=== PATIENT | female | born 1990 | race Caucasian/White ===

== ENCOUNTER 2016-11-10 06:06 | Inpatient (IN) | payer OTHER ==
[2016-11-10] VITALS (8 sets, daily range): BP systolic 100–130; BP diastolic 57–73
[2016-11-10] MEDS ORDERED: PRENATAL VITAMINS PO (07:04)
[2016-11-10] MEDS ORDERED: ZOLOFT50 MG PO (07:05)
[2016-11-10] MEDS ORDERED: TUMS500 MG PO (07:06)
--- NOTE | 2016-11-10 16:30 | NUR ---
AFTER RECEIVING REPORT FROM DERECK RN I ASSESSED THE PT AND SHE HAD A FIRM FUNDUS AT THE [facility] WITH MODERATE BLEEDING. PATIENT GIVEN HER LISSETH PACK AND EXPLAINED ITS USE, SHE VERBALIZES UNDERSTANDING AND TOOK IBUPROFEN FOR MILD DISCOMFORT OF "BOTTOM PAIN" OF 3/10. PT UP TO THE BATHROOM AND VOIDED 150 ML,PATIENT SHOWERED, TOLERATED WELL THEN AMBULATED TO ROOM 319 AND IS NOW . EPIDURAL CATHETER REMOVED, TIP INTACT PRIOR TO PATIENT GETTING OUT OF BED.
--- NOTE | 2016-11-10 17:25 | NUR ---
PATIENT HAD 3/4 PAD SATURATED, PAD CHANGED. IV PITOCIN INFUSING PER ORDERS AT 75ML/HR. C/O PAIN 7/10, INCREASED WITH FUNDAL MASSAGE. FUNDUS IS FIRM AT THE [facility]. WILL CONTINUE TO MONITOR.
--- NOTE | 2016-11-10 18:48 | NUR ---
FUNDUS FIRM AT THE [facility], PAD 1/2 SATURATED IN 1 HOUR. PATIENT C/O SEVERE PAIN WTIH FUNDAL MASSAGE AND IN HER PERINEUM. MEDICATED WITH FENTANYL PER 1 TIME DOSE FROM TONI. TONI NOTIFIED OF MODERATE TO HEAVY BLEEDING AFTER BEING MEDICATED WITH MISOPROSTOL AND METHERGINE PER DAY SHIFT. ORDERS RECEIVED FOR PAIN MEDICATION AND TO CONTINUE PITOCIN PER ORDERS DURING THE NIGHT. WILL CONTINUE TO MONITOR.
--- NOTE | 2016-11-10 22:21 | NUR ---
PATIENT GOING TO SLEEP. SHE HAD BEEN SLEEPING WITH NB ON HER CHEST, ADVISED HER TO PLACE NB IN CRIB WHILE SHE SLEEPS AND EDUCATED PATIENT ON NB SAFETY AND BACK TO SLEEP, SHE VERBALIZES UNDERSTANDING AND NB IS PLACED IN THE CRIB TO SLEEP. CALL LIGHT WITHIN REACH AND PATIENT WILL CALL FOR HELP IF NEEDED.
[2016-11-11 01:30] VITALS: BP 116/74
[2016-11-11 08:00] VITALS: BP 116/91
--- NOTE | 2016-11-11 12:45 | Provider's Discharge Care Plan ---
Problem, Goal, Plan Problem List 1. normal course Goals: Improve function Instructions: Follow up as directed
--- NOTE | 2016-11-11 12:45 | Provider's Discharge Care Plan ---
Problem, Goal, Plan Problem List 1. normal course Goals: Improve function Instructions: Follow up as directed
== END 2016-11-11 14:14 | disposition home or self-care (01) | DRG 560 ==
LOC: OBC SRH 06:06 → OB SRH 06:13 → OBC SRH 09:08 → OB SRH 09:09
PROVIDERS: ADMIT Obstetrics & Gynecology
PROC: 10E0XZZ Delivery of Products of Conception, External Approach (ICD-10-PCS; principal; 2016-11-10)
PROC: 3E033VJ Introduction of Other Hormone into Peripheral Vein, Percutaneous Approach (ICD-10-PCS; 2016-11-10)
PROC: 3E0234Z Introduction of Serum, Toxoid and Vaccine into Muscle, Percutaneous Approach (ICD-10-PCS; 2016-11-11)
DX: O80 Encounter for full-term uncomplicated delivery (principal); Z37.0 Single live birth; Z3A.39 39 weeks gestation of pregnancy; Z23 Encounter for immunization
CPT/HCPCS: 29255; 29257; 40010; 82221; 83411; 90004; 90074; 95059

== ENCOUNTER 2016-12-22 23:19 | Emergency (ER) | payer OTHER ==
[~2016-12-22 23:19] MED LIST: PRENATAL VITAMINS PO; TUMS500 MG PO; ZOLOFT50 MG PO
--- NOTE | 2016-12-23 03:31 | ED ORDER SUMMARY ---
..... Patient: JOSEPH CROOK OrderSheet [facility] VisitID: [id number] [address] [place] [address] 26y, F Registration Date/Time: 12/22/2016 ORDER SHEET Weight: 97.5 kg (stated) Allergies: No Known Drug Allergy GENERAL ORDERS: UA-Culture if indicated Urgent (01:00 12/23/2016 Amanda Fields) (Ack 1:16 Katia ER Micromatic Hone Operator) (1:54 CFalkner R.N.) Urine Urgent (01:00 12/23/2016 Amanda Fields) (Ack 1:16 Katia ER Micromatic Hone Operator) (1:54 CFalkner R.N.) CMP Urgent (02:12/23/2016 Amanda Fields) (Ack 2:32 Katia ER Micromatic Hone Operator) (2:38 JBullard R.N.) CBC w Diff Urgent (02:12/23/2016 Amanda Fields) (Ack 2:32 Katia ER Micromatic Hone Operator) (2:38 JBullard R.N.) Lipase Urgent (02:12/23/2016 Amanda Fields) (Ack 2:32 Katia ER Micromatic Hone Operator) (2:38 JBullard R.N.) Pulse oximeter (02:26 12/23/2016 Amanda Fields) (2:38 JBullard R.N.) CT Abd/Pel wo Cont Urgent (02:37 12/23/2016 Amanda Fields) (Ack 2:38 Katia ER Micromatic Hone Operator) (2:59 GUnger) MEDICATION ORDERS: IV FLUIDS: IV NS : initial bolus 1000 mL (1000 mL/hr), then none - for X1 (NOW) (02:25 12/23/2016 Amanda Fields) (Ack 2:34 JQuivey R.N.) (2:44 CFalkner R.N.) Ceftriaxone IV 1 gm/50mL (NOW) (02:25 12/23/2016 Amanda Fields) (Ack 2:35 JQuivey R.N.) (2:45 CFalkner R.N.) Toradol IV 30 mg (NOW) (02:35 12/23/2016 Amanda Fields) (2:46 Jaron R.N.) Zofran IV 4 mg (NOW) (02:35 12/23/2016 Amanda Fields) (2:45 CFaldelta R.N.) Morphine IV 4 mg (HIGH ALERT MEDICATION, NOW) (03:27 12/23/2016 Amanda Fields) (3:51 Huang Jeronimo.Aidan) ORDER SHEET NOTES: [Electronically signed by Rell Panchal R.N. (03:54 12/23/2016)] [Electronically signed by Hayder Ziegler Dr. (12:40 12/26/2016)] [Electronically locked/signed by Rell Panchal R.N. (03:54 12/23/2016)]
--- NOTE | 2016-12-23 03:31 | ED CLINICAL REPORT ---
Clinical Report - Physicians/Mid Levels [facility] [address] [place] [address] 12/22/2016 23:19 Patient: JOSEPH CROOK Arrived- By private vehicle. Historian- patient. HISTORY OF PRESENT ILLNESS Chief Complaint: FLANK PAIN and RIGHT. At its maximum, severity described as moderate. When seen in the E.D., severity described as moderate. Modifying factors- worsened by movement. Relieved by rest. This started last night and is still present and worsening. It was abrupt in onset and has been constant but is not gone now. It is described as sharp. No radiation. It is described as located in the right flank and in the suprapubic area. The patient has had nausea. She has had moderate vomiting. No bilious emesis, feculent emesis, blood-tinged emesis, coffee-grounds emesis or frankly bloody emesis. No unusually dark emesis. No additional abdominal pain. Similar symptoms previously: None. Recent medical care: Not recently seen/assessed. REVIEW OF SYSTEMS No constipation, black stools, hematemesis, bloody stools or fever. No skin rash. All systems otherwise negative, except as recorded above. PAST HISTORY See nurses notes. Medications: Vitamins Oral. Sertraline HCl Oral. Allergies: No Known Drug Allergy. SOCIAL HISTORY Never smoker. No alcohol use or drug use. No recent travel. Is a local resident. ADDITIONAL NOTES The nursing notes have been reviewed. PHYSICAL EXAM Vital Signs: 12/23/2016 00:03 BP: 140/86. HR: 66. RR: 16. O2 saturation: 95%. Temp: 97.9 F. Pain level now: 10/10. Blood pressure normal. Oxygen saturation normal. Appearance: Alert. Oriented X3. No acute distress. Eyes: Pupils equal, round and reactive to light. Eyes normal inspection. ENT: Ears normal. Nose normal. Pharynx normal. Neck: Normal inspection. Neck supple. CVS: Normal heart rate and rhythm. Heart sounds normal. Pulses normal. Respiratory: No respiratory distress. Breath sounds normal. Chest nontender. Abdomen: Soft and nontender. Bowel sounds normal. (negative Marx's. No tenderness at McBurney's. No rebound or guarding.). Skin: Skin warm and dry. Normal skin color. No rash. Normal skin turgor. Extremities: Extremities exhibit normal ROM. No lower extremity edema. LABS, X-RAYS, AND EKG Abdominal CT: PROCEDURE: CT ABDOMEN/PELVIS W/O CONTRAST INDICATION: Right flank pain TECHNIQUE: Noncontrast axial images were obtained of the entire abdomen and pelvis with sagittal and coronal reformations. COMPARISON: None. FINDINGS: ABDOMEN: There are two adjacent right UVJ calculi (two and 3 mm) with severe right hydroureteronephrosis. Normal left kidney and ureter. Lung base are clear. Heart size is normal. Liver, gallbladder, pancreas, spleen and adrenal glands are normal. Nonspecific bowel gas pattern. PELVIS: Normal appendix normal uterus, adnexa and bladder. Bones are unremarkable. IMPRESSION: 1. Two adjacent right UVJ calculi with severe right hydroureteronephrosis. Study type: abdomen and pelvis. Abdominal CT performed without contrast. The study was independently viewed by me and interpreted by the radiologist. The study was discussed with the radiologist (via fax). Laboratory Tests: UA-Culture if indicated: (ANGEL: 12/23/2016 01:50) ( MsgRcvd 12/23/2016 02:10) Final results Test Result Flag Units (Reference) URINE COLOR YELLOW URINE APPEARANCE CLEAR URINE GLUCOSE NEGATIVE (NEGATIVE) URINE BILIRUBIN NEGATIVE (NEGATIVE) URINE KETONE TRACE (NEGATIVE) URINE SPECIFIC GRAVITY >= 1.030 (1.010-1.030) URINE PH 6.0 (5.0-8.0) URINE PROTEIN TRACE (NEGATIVE) URINE UROBILINOGEN 0.2 EU/dL (0.2-1.0) URINE NITRITE NEGATIVE (NEGATIVE) URINE BLOOD 3+ (NEGATIVE) URINE LEUK ESTERASE POSITIVE (NEGATIVE) URINE RBC 50-75 rbc/hpf (0-1) URINE WBC 5-10 wbc/hpf (0-1) URINE EPITHELIAL CELLS 0-1 EPI/hpf (0-5) URINE BACTERIA MODERATE (2+ TO 3+) (NONE SEEN) URINE COMMENT CULTURE INDICATED URINE CULTURES ARE SET-UP BASED ON THE FOLLOWING CRITERIA:POSITIVE NITRITEPOSITIVE LEUKOCYTE ESTERASEGREATER THAN 10 WHITE BLOOD CELLSMODERATE (2+) OR GREATER BACTERIA Urine: (ANGEL: 12/23/2016 01:50) ( MsgRcvd 12/23/2016 02:02) Final results Test Result Flag Units (Reference) URINE NEGATIVE . PROGRESS AND PROCEDURES Course of Care: The patient is a pleasant 26-year-old female no current past medical history presenting for a dilation of flank pain. At this time differential diagnosis includes urinary tract infection, pyelonephritis, or urolithiasis. Patient be evaluated with CT scan of the abdomen and pelvis without contrast in addition to laboratory studies including urinalysis and S/complete blood count cell count. Patient agreeable to the treatment plan. Patient is nontoxic on examination. Vital signs are also noted to be unremarkable. Workup shows patient to havestones noted in the UVJ. The size of the stones are 3 mm and had a high likelihood of passing based on the size. Patient also reported improved pain symptoms with medications provided here in the emergency department. Do not feel patient is being admitted to the hospital require further emergency department workup/evaluation. Patient will be treated conservatively with nonsteroidal anti-inflammatory medications, other pain medication, and urology follow-up. Discussed with patient workup, diagnosis, home care, follow-up, and return precautions. All questions answered. The patient expressed understanding of these instructions and was agreeable aaliyahednot the patient hasacute appendicitis or atypical presentation. The patient has a more sinister etiology for her pain today. Symptoms are consistent with findings on CT scan today. Disposition: Discharged. Condition: good. CLINICAL IMPRESSION Abdominal pain. (acute right flank and lower abdomen). 12/23/2016 00:03 BP: 140/86. HR: 66. RR: 16. O2 saturation: 95%. Temp: 97.9 F. Pain level now: 10/10. Hypertensive. Oxygen saturation normal. Right renal colic (acute). Ureterolithiasis (multiple stones) in the right ureter (acute). Acute urinary tract infection with hematuria. Essential hypertension. INSTRUCTIONS Warnings: GENERAL WARNINGS: Return or contact your physician immediately if your condition worsens or changes unexpectedly, if not improving as expected, or if other problems arise. SPECIFICALLY, return if you develop pain, fever, vomiting, the inability to keep fluids down, blood in vomitus, blood in diarrhea, fainting or lightheadedness. Your Current Medications: CONTINUE TAKING THE FOLLOWING MEDICATIONS: Vitamins Oral. Sertraline HCl Oral. Prescription Medications: Motrin 600 mg tablets: take 1 tablet orally every 6 hours as needed for pain, stiffness or swelling. Dispense thirty (30). No refill. Substitution is permissible. Zofran ODT 4 mg: take 1 orally every 8 hours as needed for nausea and vomiting. Dispense ten (10). No refill. Substitution is permissible. Percocet 5 mg/325 mg: take 1 tablet orally every 6 hours as needed for pain. Dispense twenty (20). No refill. Substitution is permissible. Follow-up: Return to the emergency department as needed. Follow up with your doctor in three days. Reason for referral: recheck today's concerns. Summary of care provided to patient via paper. Screening today revealed the patient's blood pressure to be in the normal range. The patient should follow up with a primary care provider for blood pressure management. Understanding of the discharge instructions verbalized by patient. Follow-up with: Fran Diaz MD, Urology, , [address] [facility] [place], [id number] Follow up in one week. Reason for referral: recheck today's concerns. Summary of care provided to patient via paper. (Electronically signed by Hayder Ziegler Dr. 12/26/2016 12:40)
--- NOTE | 2016-12-23 03:31 | ED NURSING NOTES ---
Clinical Report - Nurses [facility] [place] [address] 12/22/2016 23:19 Patient: TERELL CROOK TRIAGE Acuity: LEVEL 3. Chief Complaint: ABDOMINAL PAIN and NAUSEA. 00:12. --00:12 Clarisse Mcguire R.N. 00:03 12/23/16. BP: 140/86 taken on the left arm, via an automated monitor, while sitting. HR: 66 (regular, normal rate and strong). RR: 16 (regular, unlabored and normal). O2 saturation: 95% on room air. Temp: 97.9 F (oral). Pain level now: 08/14. --00:12 Clarisse Mcguire R.N. Weight: 97.5 kg stated. Height/Length: 67 inches Per Patient. BMI: 33.7. --00:11 Clarisse Mcguire R.N. Medications Vitamins Oral. Sertraline HCl Oral. --00:05 Clarisse Mcguire R.N. Allergies No Known Drug Allergy. --00:05 Clarisse Mcgurie R.N. History Arrived by private vehicle. Historian: patient. Accompanied by grandmother (not seen). Onset. (3 hours ago). She has had nausea. Last oral intake by patient was (2 minutes ago). PAST MEDICAL HX: Immunizations: up-to-date. ( post 6 weeks). SOCIAL HX: Smoker- current status unknown. No alcohol use or drug use. FALL RISK ASSESSMENT: Fall risk assessment completed. No fall risk identified. NUTRITIONAL RISK ASSESSMENT: The nutritional risk assessment revealed no deficiencies. FUNCTIONAL ASSESSMENT: Functional assessment: no impairments noted. LEARNING NEEDS ASSESSMENT: The learning needs assessment revealed no barriers. SKIN INTEGRITY ASSESSMENT: Skin integrity risk assessment completed. No skin integrity risk identified. --00:12 Clarisse Mcguire R.N. NURSING PROGRESS NOTES ( ICE BAGS GIVEN). --01:49 Orlando Stock ER Veneer Marker 01:55. Patient ID band checked for patient name and birthdate. Clean catch urine collected with return of terell-colored urine; sample sent to lab for urinalysis and HCG. Specimen labeled in the presence of the patient. --01:55 Clarisse Mcguire R.N. 02:34 12/23/2016 Started bag #1 1000 mL IV Fluids IV NS (Saline); at 1000 mL/hr over 1 hour(s) via site #1 --02:44 Clarisse Mcguire R.N. 02:35 12/23/2016 Zofran (Ondansetron HCl) IVP 4 mg given over 2 minute(s) via site #1. Allergies verified and confirmed 5 rights. IV patency established. IV site checked: no pain, redness, or swelling. IV flushed thoroughly pre- and post-medication administration. --02:45 Clarisse Mcguire R.N. 02:41 12/23/2016 Toradol IVP 30 mg given over 2 minute(s) via site #1. Allergies verified and confirmed 5 rights. IV patency established. IV site checked: no pain, redness, or swelling. IV flushed thoroughly pre- and post-medication administration. --02:46 Clarisse Mcguire R.N. 02:43 12/23/2016 Site #1 started via IV in the right forearm with an 20g angiocath, with aseptic technique and good blood return; one attempt. Blood drawn: rainbow set. Labeled in the presence of the patient and sent to the lab. Saline lock flushed with 10 mL saline. --02:43 Clarisse Mcguire R.N. 02:45 12/23/2016 Started 1 gm of Ceftriaxone IVPB in bag #1 50 mL; at 100 mL/hr over 30 minute(s) via site #1 --02:45 Clarisse Mcguire R.N. 02:50. Patient transported to [place] by stretcher with tech. --02:52 Uziel Barber R.N. 03:51 12/23/2016 Morphine IVP 4 mg given over 2 minute(s) via site #1. Allergies verified, confirmed 5 rights and sedative warning given to the patient. IV patency established. IV site checked: no pain, redness, or swelling. IV flushed thoroughly pre- and post-medication administration. --03:51 Rell Panchal R.N. 03:52 12/23/2016 Site #1 removed upon discharge. Bandage applied. --03:52 Rell Panchal R.N. 03:53 12/23/2016 IV Fluids IV NS Discontinued: infused upon discharge. Total amount infused: 1000 mL. IV patency established. IV site checked: no pain, redness, or swelling. IV flushed thoroughly. --03:53 Rell Panchal R.N. 03:53 12/23/2016 Ceftriaxone IVPB Discontinued: bag #1 infused upon discharge. Total amount infused: 50 mL. IV patency established. IV site checked: no pain, redness, or swelling. IV flushed thoroughly. --03:53 Rell Panchal R.N. DISPOSITION / DISCHARGE Departure time: 351. Condition at departure: improved. No learning barriers present. Discharge instructions provided and reviewed with the patient. Reviewed warnings. Reviewed medication(s). Treatments reviewed. Reviewed referrals. Patient verbalized understanding. Written instructions provided in Pashto. The patient was discharged by the physician. She was discharged home and accompanied by family. She left the Emergency Department ambulatory and via private vehicle. Family member driving. FALL RISK ASSESSMENT: Fall risk assessment completed. No fall risk identified. --03:53 Rell Panchal R.N. 03:52 12/23/16. BP: 140/78. HR: 66. RR: 16. O2 saturation: 98%. Temp: 98 F. Pain level now 01/12. --03:53 Rell Panchal R.N. Locked/Released at 12/23/2016 3:54 by Rell Panchal R.N.
--- NOTE | 2016-12-23 03:31 | ED ORDER SUMMARY ---
..... Patient: JOSEPH CROOK OrderSheet [facility] VisitID: [id number] [address] [place] [address] 26y, F Registration Date/Time: 12/22/2016 ORDER SHEET Weight: 97.5 kg (stated) Allergies: No Known Drug Allergy GENERAL ORDERS: UA-Culture if indicated Urgent (01:00 12/23/2016 Amanda Fields) (Ack 1:16 Katia ER Cashier Credit) (1:54 CFalkner R.N.) Urine Urgent (01:00 12/23/2016 Amanda Fields) (Ack 1:16 Katia ER Cashier Credit) (1:54 CFalkner R.N.) CMP Urgent (02:12/23/2016 Amanda Fields) (Ack 2:32 Katia ER Cashier Credit) (2:38 JBullard R.N.) CBC w Diff Urgent (02:12/23/2016 Amanda Fields) (Ack 2:32 Katia ER Cashier Credit) (2:38 JBullard R.N.) Lipase Urgent (02:12/23/2016 Amanda Fields) (Ack 2:32 Katia ER Cashier Credit) (2:38 JBullard R.N.) Pulse oximeter (02:26 12/23/2016 Amanda Fields) (2:38 JBullard R.N.) CT Abd/Pel wo Cont Urgent (02:37 12/23/2016 Amanda Fields) (Ack 2:38 Katia ER Cashier Credit) (2:59 GUnger) MEDICATION ORDERS: IV FLUIDS: IV NS : initial bolus 1000 mL (1000 mL/hr), then none - for X1 (NOW) (02:25 12/23/2016 Amanda Fields) (Ack 2:34 JQuivey R.N.) (2:44 CFalkner R.N.) Ceftriaxone IV 1 gm/50mL (NOW) (02:25 12/23/2016 Amanda Fields) (Ack 2:35 JQuivey R.N.) (2:45 CFalkner R.N.) Toradol IV 30 mg (NOW) (02:35 12/23/2016 Amanda Fields) (2:46 Jaron R.N.) Zofran IV 4 mg (NOW) (02:35 12/23/2016 Amanda Fields) (2:45 CFaldelta R.N.) Morphine IV 4 mg (HIGH ALERT MEDICATION, NOW) (03:27 12/23/2016 Amanda Fields) (3:51 Huang Jeronimo.Aidan) ORDER SHEET NOTES: [Electronically signed by Rell Panchal R.N. (03:54 12/23/2016)] [Electronically signed by Hayder Ziegler Dr. (12:40 12/26/2016)] [Electronically locked/signed by Rell Panchal R.N. (03:54 12/23/2016)]
--- NOTE | 2016-12-23 09:12 | DIAGNOSTIC IMAGING REPORT ---
PROCEDURE: CT ABDOMEN/PELVIS W/O CONTRAST INDICATION: Right flank pain TECHNIQUE: Noncontrast axial images were obtained of the entire abdomen and pelvis with sagittal and coronal reformations. COMPARISON: None. FINDINGS: ABDOMEN: There are two adjacent right UVJ calculi (two and 3 mm) with severe right hydroureteronephrosis. Normal left kidney and ureter. Lung base are clear. Heart size is normal. Liver, gallbladder, pancreas, spleen and adrenal glands are normal. Nonspecific bowel gas pattern. PELVIS: Normal appendix normal uterus, adnexa and bladder. Bones are unremarkable. IMPRESSION: 1. Two adjacent right UVJ calculi with severe right hydroureteronephrosis. 2. Preliminary results submitted by Dr. Chisholm, [facility] radiology All CT scans at this facility use dose modulation, iterative reconstruction, and/or weight-based dosing when appropriate to reduce radiation dose to as low as reasonably achievable.
--- NOTE | 2016-12-26 12:40 | ED DISCHARGE INSTRUCTIONS ---
Patient: JOSEPH CROOK General Instructions [facility] VisitID: [id number] [address] [place] [address] 26y, F Registration Date/Time: 12/22/2016 Abdominal pain. (acute right flank and lower abdomen). 12/23/2016 00:03 BP: 140/86. HR: 66. RR: 16. O2 saturation: 95%. Temp: 97.9 F. Pain level now: 08/14. Hypertensive. Oxygen saturation normal. Right renal colic (acute). Ureterolithiasis (multiple stones) in the right ureter (acute). Acute urinary tract infection with hematuria. Essential hypertension. INSTRUCTIONS Warnings: GENERAL WARNINGS: Return or contact your physician immediately if your condition worsens or changes unexpectedly, if not improving as expected, or if other problems arise. SPECIFICALLY, return if you develop pain, fever, vomiting, the inability to keep fluids down, blood in vomitus, blood in diarrhea, fainting or lightheadedness. Your Current Medications: CONTINUE TAKING THE FOLLOWING MEDICATIONS: Vitamins Oral. Sertraline HCl Oral. Prescription Medications: Motrin 600 mg tablets: take 1 tablet orally every 6 hours as needed for pain, stiffness or swelling. Dispense thirty (30). No refill. Substitution is permissible. Zofran ODT 4 mg: take 1 orally every 8 hours as needed for nausea and vomiting. Dispense ten (10). No refill. Substitution is permissible. Percocet 5 mg/325 mg: take 1 tablet orally every 6 hours as needed for pain. Dispense twenty (20). No refill. Substitution is permissible. Follow-up: Return to the emergency department as needed. Follow up with your doctor in three days. Reason for referral: recheck today's concerns. Summary of care provided to patient via paper. Screening today revealed the patient's blood pressure to be in the normal range. The patient should follow up with a primary care provider for blood pressure management. Understanding of the discharge instructions verbalized by patient. Follow-up with: Fran Diaz MD, Urology, , [id number] [facility] [id number] Follow up in one week. Reason for referral: recheck today's concerns. Summary of care provided to patient via paper. ADDITIONAL INFORMATION Abdominal Pain, Unknown Cause (Female) The exact cause of your abdominal (stomach) pain is not certain. This does not mean that this is something to worry about, or the right tests were not done. Everyone likes to know the exact cause of the problem, but sometimes with abdominal pain, there is no clear-cut cause, and this could be a good thing. The good news is that your symptoms can be treated, and you will feel better. Your condition does not seem serious now; however, sometimes the signs of a serious problem may take more time to appear. For this reason,it is important for you to watch for any new symptoms, problems,or worsening of your condition. Over the next few days, the abdominal pain may come and go, or be continuous. Other common symptoms can include nausea and vomiting. Sometimes it can be difficult to tell if you feel nauseous, you may just feel bad and not associate that feeling with nausea. Constipation, diarrhea, and a fever may go along with the pain. The pain may continue even if treated correctly over the following days. Depending on how things go, sometimes the cause can become clear and may require further or different treatment. Additional evaluations, medications, or tests may be needed. Home care Your health care provider may prescribe medications for pain, symptoms, or an infection. Follow the health care provider's instructions for taking these medications. General care Rest until your next exam. No strenuous activities. Try to find positions that ease discomfort. A small pillow placed on the abdomen may help relieve pain. Something warm on your abdomen (such as a heating pad) may help, but be careful not to burn yourself. Diet Do not force yourself to eat, especially if having cramps, vomiting, or diarrhea. Water is important so you do not get dehydrated. Soup may also be good. Sports drinks may also help, especially if they are not too acidic. Make sure you don't drink sugary drinks as this can make things worse. Take liquids in small amounts. Do not guzzle them. Caffeine sometimes makes the pain and cramping worse. Avoid dairy products if you have vomiting or diarrhea. Don't eat large amounts at a time. Wait a few minutes between bites. Eat a diet low in fiber (called a low-residue diet). Foods allowed include refined breads, white rice, fruit and vegetable juices without pulp, tender meats. These foods will pass more easily through the intestine. Avoid whole-grain foods, whole fruits and vegetables, meats, seeds and nuts, fried or fatty foods, dairy, alcohol and spicy foods until your symptoms go away. Follow-up care Follow up with your health care provider as instructed, or if your pain does not begin to improve in the next 24 hours. When to seek medical care Seek prompt medical care if any of the following occur: Pain gets worse or moves to the right lower abdomen New or worsening vomiting or diarrhea Swelling of the abdomen Unable to pass stool for more than three days Fever of 100.4F (38C) or higher, or as directed by your healthcare provider. Blood in vomit or bowel movements (dark red or black color) Jaundice (yellow color of eyes and skin) Weakness, dizziness Chest, arm, back, neck or jaw pain Unexpected vaginal bleeding or missed period Call 911 Call emergency services if any of the following occur: Trouble breathing Confusion Fainting or loss of consciousness Rapid heart rate Seizure Abdominal Pain,Possible Appendicitis [Repeat Exam, Female] Based on your visit today, the exact cause of your abdominal (stomach) pain is not certain. However, you do have some of the early signs of APPENDICITIS. Early in an appendix infection the symptoms can be similar to a simple "stomach ache" or "stomach flu". Therefore, the diagnosis can be hard to make. Since an appendix infection is a serious condition, it is important to know if this is the cause of your symptoms. WAITING for more time to pass and repeating the exam is the best way to find out whether you have appendicitis. Within the next 12-24 hours the cause of your stomach pain should become clear. It is important for you to watch for any new symptoms or worsening of your condition. (See below). Home Care: Rest until your next exam. No strenuous activities. Eat a diet low in fiber (called a low-residue diet). Foods allowed include refined breads, white rice, fruit and vegetable juices without pulp, tender meats. These foods will pass more easily through the intestine. Avoid whole-grain foods, whole fruits and vegetables, meats, seeds and nuts, fried or fatty foods, dairy, alcohol and spicy foods until your symptoms go away. In some cases, you may be asked not to eat or drink anything until you are re-examined. Return for another exam exactly as directed. Follow Up with your doctor or this facility as directed. Get Prompt Medical Attention if any of the following occur: Pain gets worse or moves to the right lower abdomen New or worsening vomiting or diarrhea Swelling of the abdomen Unable to pass stool for more than three days Fever of 100.4F (38C) or higher, or as directed by your healthcare provider Blood in vomit or bowel movements (dark red or black color) Weakness, dizziness or fainting Unexpected vaginal bleeding Kidney Stone (W/ Colic) The sharp cramping pain and nausea/vomiting that you have is due to a small stone which has formed in the kidney and is now passing down a narrow tube (ureter) on its way to your bladder. Once it reaches your bladder, the pain will stop. The stone may pass in your urine stream in one piece. [The size may be 1/16" to 1/4" (1-6mm)]. Or, the stone may also break up into doug fragments which you may not even notice. Once you have had a kidney stone, you are at risk for developing another one in the future. Home Care: Drink plenty of fluids (at least 8 to 10 glasses of water a day). Most stones will pass on their own, but may take from a few hours to a few days. Sometimes the stone is too large to pass by itself and special methods will have to be used to remove the stone. Each time you urinate, do so in a jar. Pour the urine from the jar through the strainer and into the toilet. Continue doing this until 24 hours after your pain stops. By then, if there was a kidney stone, it should pass from your bladder. Some stones dissolve into sand-like particles and pass right through the strainer. In that case, you wont ever see a stone. Save any stone that you find in the strainer and bring it to your doctor for analysis. It may be possible to prevent certain types of stones from forming. Therefore, it is important to know what kind of stone you have. Try to stay as active as possible since this will help the stone pass. Do not stay in bed unless your pain prevents you from getting up. You may notice a red, pink or brown color to your urine. This is normal while passing a kidney stone. Follow Up with your doctor or return to this facility if the pain lasts more than 48 hours. Get Prompt Medical Attention if any of the following occur: Pain that is not controlled by the medicine given Repeated vomiting or unable to keep down fluids Weakness, dizziness or fainting Fever of 100.4F (38C) or higher, or as directed by your healthcare provider Passage of solid red or brown urine (can't see through it) or urine with lots of blood clots Unable to pass urine for 8 hours and increasing bladder pressure Bladder Infection,Female (Adult) A bladder infection ("cystitis" or "UTI") usually causes a constant urge to urinate and a burning when passing urine. Urine may be cloudy, smelly or dark. There may be pain in the lower abdomen. A bladder infection occurs when bacteria from the vaginal area enter the bladder opening (urethra). This can occur from sexual intercourse, wearing tight clothing, dehydration and other factors. Home Care: Drink lots of fluids (at least 6-8 glasses a day, unless you must restrict fluids for other medical reasons). This will force the medicine into your urinary system and flush the bacteria out of your body. Avoid sexual intercourse until your symptoms are gone. Avoid caffeine, alcohol and spicy foods. These can irritate the bladder. A bladder infection is treated with antibiotics. You may also be given Pyridium (generic = phenazopyridine) to reduce the burning sensation. This medicine will cause your urine to become a bright orange color. The orange urine may stain clothing. You may wear a pad or panty-liner to protect clothing. Preventing Future Infections: Always wipe from front to back after a bowel movement. Keep the genital area clean and dry. Drink plenty of fluids each day to avoid dehydration. Both sexual partners should wash before intercourse. Urinate right after intercourse to flush out the bladder. Wear cotton underwear and cotton-lined panty hose; avoid tight-fitting pants. If you are on control pills and are having frequent bladder infections, discuss with your doctor. Follow Up: Return to this facility or see your doctor if ALL symptoms are not gone after three days of treatment. Get Prompt Medical Attention if any of the following occur: Fever of 100.4F (38C) or higher, or as directed by your healthcare provider No improvement by the third day of treatment Increasing back or abdominal pain Repeated vomiting; unable to keep medicine down Weakness, dizziness or fainting Vaginal discharge Pain, redness or swelling in the labia (outer vaginal area) Blood In The Urine Blood in the urine ("hematuria") has many possible causes. If it occurs after an injury (such as a car accident or fall), it is most often a sign of bruising to the kidney or bladder. Common medical causes of blood in the urine include urinary tract infection, kidney stone, inflammation, tumors, or certain other diseases of the kidney or bladder. Menstruation can cause blood to appear in the urine sample, although it is not coming from the urinary tract. If only a trace amount of blood is present, it will show up on the urine test, even though the urine may be yellow and not pink or red. This may occur with any of the above conditions, as well as heavy exercise or high fever. In this case, your doctor may want to repeat the urine test on another day. This will show if the blood is still present. If so, then other tests can be done to find out the cause. Home Care: If your urine does not appear bloody (pink, brown or red) then you do not need to restrict your activity in any way. If you can see blood in your urine, rest and avoid heavy exertion until your next exam. Do not use aspirin or anti-inflammatory medicine like ibuprofen (Motrin, Advil) or naproxen (Naprosyn, Aleve). These thin the blood and may increase bleeding. Follow Up with your doctor or as advised by our staff. If you were injured and had blood in your urine, you should have a repeat urine test in 1-2 days. Contact your doctor or return to this facility for this test. [NOTE: A radiologist will review any X-rays that were taken. We will notify you of any new findings that may affect your care.] Get Prompt Medical Attention if any of the following occur: Bright red blood or blood clots in the urine (if a new symptom) Weakness, dizziness or fainting New groin, abdominal or back pain Fever of 100.4F (38C) or higher, or as directed by your healthcare provider Repeated vomiting Bleeding from nose, gums or easy bruising High Blood Pressure -- To Be Confirmed [No Tx] Your blood pressure was higher today than normal. Sometimes anxiety or pain can cause a temporary rise in blood pressure that later returns to normal. If your blood pressure is high on one measurement, this does not mean that you have hypertension (a chronic illness). However, you must have your blood pressure measured again within the next few days to find out if its still high. A normal blood pressure is 120/80 or less. The first (top) number is the "systolic" pressure. The second (bottom) number is the "diastolic" pressure. Hypertension exists when either the top number is 140 or higher, OR the bottom number is 90 or higher on repeated measurements. Blood pressure in the range of 120-140 (systolic) or 80-89 (diastolic) is considered "pre-hypertension". This means your are at risk for getting hypertension. You should have regular blood pressure checks to be sure your blood pressure is not rising. Home Care: Measure your blood pressure on 3 different days and write down the results. This can be done at your doctor's office or this facility. Some pharmacies and grocery stores offer automated blood pressure machines for your use. Follow Up: If your blood pressure is "high" (over 120/80) on 2 out of 3 days, you will need to follow up with your doctor for further evaluation and treatment. DO NOT PUT THIS OFF! Untreated high blood pressure increases the risk for heart attack, also known as acute myocardial infarction, or AMI, and stroke. It is a treatable condition. Get Prompt Medical Attention if any of the following occur: Chest pain or shortness of breath Severe headache Throbbing or rushing sound in the ears Nosebleed Sudden severe abdominal pain Extreme drowsiness, confusion or fainting Dizziness or vertigo (dizziness with spinning sensation) Weakness of an arm or leg or one side of the face Difficulty with speech or vision Ibuprofen Oral tablet What is this medicine? IBUPROFEN (eye BYOO proe fen) is a non-steroidal anti-inflammatory drug (NSAID). It is used for dental pain, fever, headaches or migraines, osteoarthritis, rheumatoid arthritis, or painful monthly periods. It can also relieve minor aches and pains caused by a cold, flu, or sore throat. How should I use this medicine? Take this medicine by mouth with a glass of water. Follow the directions on the prescription label. Take this medicine with food if your stomach gets upset. Try to not lie down for at least 10 minutes after you take the medicine. Take your medicine at regular intervals. Do not take your medicine more often than directed. A special MedGuide will be given to you by the pharmacist with each prescription and refill. Be sure to read this information carefully each time. Talk to your inspector fibrous wallboard regarding the use of this medicine in children. Special care may be needed. What side effects may I notice from receiving this medicine? Side effects that you should report to your doctor or health long term care administrator as soon as possible: allergic reactions like skin rash, itching or hives, swelling of the face, lips, or tongue black or bloody stools, blood in the urine or in vomit breathing problems changes in vision chest pain general ill feeling or flu-like symptoms nausea or vomiting redness, blistering, peeling or loosening of the skin, including inside the mouth slurred speech or weakness on one side of the body stomach pain unexplained weight gain or swelling unusually weak or tired yellowing of eyes or skin Side effects that usually do not require medical attention (report to your doctor or health long term care administrator if they continue or are bothersome): constipation or diarrhea dizziness gas or heartburn stomach upset What may interact with this medicine? Do not take this medicine with any of the following medications: cidofovir ketorolac methotrexate pemetrexed This medicine may also interact with the following medications: alcohol aspirin diuretics lithium other drugs for inflammation like prednisone warfarin What if I miss a dose? If you miss a dose, take it as soon as you can. If it is almost time for your next dose, take only that dose. Do not take double or extra doses. Where should I keep my medicine? Keep out of the reach of children. Store at room temperature between 15 and 30 degrees C (59 and 86 degrees F). Keep container tightly closed. Throw away any unused medicine after the expiration date. What should I tell my health care provider before I take this medicine? They need to know if you have any of these conditions: asthma cigarette smoker drink more than 3 alcohol containing drinks a day heart disease or circulation problems such as heart failure or leg edema (fluid retention) high blood pressure kidney disease liver disease stomach bleeding or ulcers an unusual or allergic reaction to ibuprofen, aspirin, other NSAIDS, other medicines, foods, dyes, or preservatives or trying to get breast-feeding What should I watch for while using this medicine? Tell your doctor or healthcare professional if your symptoms do not start to get better or if they get worse. This medicine does not prevent heart attack or stroke. In fact, this medicine may increase the chance of a heart attack or stroke. The chance may increase with longer use of this medicine and in people who have heart disease. If you take aspirin to prevent heart attack or stroke, talk with your doctor or health long term care administrator. Do not take other medicines that contain aspirin, ibuprofen, or naproxen with this medicine. Side effects such as stomach upset, nausea, or ulcers may be more likely to occur. Many medicines available without a prescription should not be taken with this medicine. This medicine can cause ulcers and bleeding in the stomach and intestines at any time during treatment. Ulcers and bleeding can happen without warning symptoms and can cause . To reduce your risk, do not smoke cigarettes or drink alcohol while you are taking this medicine. You may get drowsy or dizzy. Do not drive, use machinery, or do anything that needs mental alertness until you know how this medicine affects you. Do not stand or sit up quickly, especially if you are an older patient. This reduces the risk of dizzy or fainting spells. This medicine can cause you to bleed more easily. Try to avoid damage to your teeth and gums when you brush or floss your teeth. Ondansetron Oral disintegrating tablet What is this medicine? ONDANSETRON (on VERONICA se vikram) is used to treat nausea and vomiting caused by chemotherapy. It is also used to prevent or treat nausea and vomiting after surgery. How should I use this medicine? These tablets are made to dissolve in the mouth. Do not try to push the tablet through the foil backing. With dry hands, peel away the foil backing and gently remove the tablet. Place the tablet in the mouth and allow it to dissolve, then swallow. While you may take these tablets with water, it is not necessary to do so. Talk to your inspector fibrous wallboard regarding the use of this medicine in children. Special care may be needed. What side effects may I notice from receiving this medicine? Side effects that you should report to your doctor or health long term care administrator as soon as possible: allergic reactions like skin rash, itching or hives, swelling of the face, lips, or tongue breathing problems dizziness fast or irregular heartbeat feeling faint or lightheaded, falls fever and chills swelling of the hands and feet tightness in the chest Side effects that usually do not require medical attention (report to your doctor or health long term care administrator if they continue or are bothersome): constipation or diarrhea headache What may interact with this medicine? Do not take this medicine with any of the following medications: -apomorphine -cisapride -dofetilide -dronedarone -pimozide -thioridazine -ziprasidone This medicine may also interact with the following medications: -carbamazepine -phenytoin -rifampicin -tramadol -other medicines that prolong the QT interval (cause an abnormal heart rhythm) What if I miss a dose? If you miss a dose, take it as soon as you can. If it is almost time for your next dose, take only that dose. Do not take double or extra doses. Where should I keep my medicine? Keep out of the reach of children. Store between 2 and 30 degrees C (36 and 86 degrees F). Throw away any unused medicine after the expiration date. What should I tell my health care provider before I take this medicine? They need to know if you have any of these conditions: heart disease history of irregular heartbeat liver disease low levels of magnesium or potassium in the blood an unusual or allergic reaction to ondansetron, granisetron, other medicines, foods, dyes, or preservatives or trying to get breast-feeding What should I watch for while using this medicine? Check with your doctor or health long term care administrator as soon as you can if you have any sign of an allergic reaction. Oxycodone Hydrochloride, Acetaminophen Oral tablet What is this medicine? ACETAMINOPHEN; OXYCODONE (a set a JEZ dusty fen; ox i KOE done) is a pain reliever. It is used to treat mild to moderate pain. How should I use this medicine? Take this medicine by mouth with a full glass of water. Follow the directions on the prescription label. Take your medicine at regular intervals. Do not take your medicine more often than directed. Talk to your inspector fibrous wallboard regarding the use of this medicine in children. Special care may be needed. Patients over 65 years old may have a stronger reaction and need a smaller dose. What side effects may I notice from receiving this medicine? Side effects that you should report to your doctor or health long term care administrator as soon as possible: allergic reactions like skin rash, itching or hives, swelling of the face, lips, or tongue breathing difficulties, wheezing confusion light headedness or fainting spells severe stomach pain yellowing of the skin or the whites of the eyes Side effects that usually do not require medical attention (report to your doctor or health long term care administrator if they continue or are bothersome): dizziness drowsiness nausea vomiting What may interact with this medicine? alcohol antihistamines barbiturates like amobarbital, butalbital, butabarbital, methohexital, pentobarbital, phenobarbital, thiopental, and secobarbital benztropine drugs for bladder problems like solifenacin, trospium, oxybutynin, tolterodine, hyoscyamine, and methscopolamine drugs for breathing problems like ipratropium and tiotropium drugs for certain stomach or intestine problems like propantheline, homatropine methylbromide, glycopyrrolate, atropine, belladonna, and dicyclomine general anesthetics like etomidate, ketamine, nitrous oxide, propofol, desflurane, enflurane, halothane, isoflurane, and sevoflurane medicines for depression, anxiety, or psychotic disturbances medicines for sleep muscle relaxants naltrexone narcotic medicines (opiates) for pain phenothiazines like perphenazine, thioridazine, chlorpromazine, mesoridazine, fluphenazine, prochlorperazine, promazine, and trifluoperazine scopolamine tramadol trihexyphenidyl What if I miss a dose? If you miss a dose, take it as soon as you can. If it is almost time for your next dose, take only that dose. Do not take double or extra doses. Where should I keep my medicine? Keep out of the reach of children. This medicine can be abused. Keep your medicine in a safe place to protect it from theft. Do not share this medicine with anyone. Selling or giving away this medicine is dangerous and against the law. Store at room temperature between 20 and 25 degrees C (68 and 77 degrees F). Keep container tightly closed. Protect from light. This medicine may cause accidental overdose and if it is taken by other adults, children, or pets. Flush any unused medicine down the toilet to reduce the chance of harm. Do not use the medicine after the expiration date. What should I tell my health care provider before I take this medicine? They need to know if you have any of these conditions: brain tumor Crohn's disease, inflammatory bowel disease, or ulcerative colitis drink more than 3 alcohol containing drinks per day drug abuse or addiction head injury heart or circulation problems kidney disease or problems going to the bathroom liver disease lung disease, asthma, or breathing problems an unusual or allergic reaction to acetaminophen, oxycodone, other opioid analgesics, other medicines, foods, dyes, or preservatives or trying to get breast-feeding What should I watch for while using this medicine? Tell your doctor or health long term care administrator if your pain does not go away, if it gets worse, or if you have new or a different type of pain. You may develop tolerance to the medicine. Tolerance means that you will need a higher dose of the medication for pain relief. Tolerance is normal and is expected if you take this medicine for a long time. Do not suddenly stop taking your medicine because you may develop a severe reaction. Your body becomes used to the medicine. This does NOT mean you are addicted. Addiction is a behavior related to getting and using a drug for a non-medical reason. If you have pain, you have a medical reason to take pain medicine. Your doctor will tell you how much medicine to take. If your doctor wants you to stop the medicine, the dose will be slowly lowered over time to avoid any side effects. You may get drowsy or dizzy. Do not drive, use machinery, or do anything that needs mental alertness until you know how this medicine affects you. Do not stand or sit up quickly, especially if you are an older patient. This reduces the risk of dizzy or fainting spells. Alcohol may interfere with the effect of this medicine. Avoid alcoholic drinks. There are different types of narcotic medicines (opiates) for pain. If you take more than one type at the same time, you may have more side effects. Give your health care provider a list of all medicines you use. Your doctor will tell you how much medicine to take. Do not take more medicine than directed. Call emergency for help if you have problems breathing. The medicine will cause constipation. Try to have a bowel movement at least every 2 to 3 days. If you do not have a bowel movement for 3 days, call your doctor or health long term care administrator. Do not take Tylenol (acetaminophen) or medicines that have acetaminophen with this medicine. Too much acetaminophen can be very dangerous. Many nonprescription medicines contain acetaminophen. Always read the labels carefully to avoid taking more acetaminophen. You have been given the following additional information: Abdominal Pain, Unknown Cause, (Female) Abdominal Pain, Possible Appendicitis (Female) Kidney Stone W/ Colic Bladder Infection, Female (Adult) Hematuria Hypertension, To Be Confirmed Ibuprofen Oral tablet Ondansetron Oral disintegrating tablet Oxycodone Hydrochloride, Acetaminophen Oral tablet (Electronically signed by Hayder Ziegler Dr. 12/26/2016 12:40)
--- NOTE | 2016-12-26 12:41 | ED MED RECONCILIATION SUMMARY ---
Patient: JOSEPH CROOK Medication Reconciliation Report [facility] VisitID: [id number] [address] [place] [address] 26y, F Registration Date/Time: 12/22/2016 Weight: 97.5 kg Height/Length: 67 in. BMI: 33.7 ALLERGIES: No Known Drug Allergy The patient's Home Medications are listed below: CONTINUE TAKING THE FOLLOWING MEDICATIONS: Vitamins Oral Sertraline HCl Oral The source(s) of the original Home Medication information: Not obtained. The following Medications were given to the patient in the Emergency Department: IV NS IV Fluids bolus 0, then 1000 mL/hr, administered: 12/23/2016 2:34:00 AM Ceftriaxone [IVPB] IVPB bolus 0, then 1 gm 100 mL/hr, administered: 12/23/2016 2:45:00 AM Zofran [IVP] IVP 4 mg, administered: 12/23/2016 2:35:00 AM Toradol [IVP] IVP 30 mg, administered: 12/23/2016 2:41:00 AM Morphine [IVP] IVP 4 mg, administered: 12/23/2016 3:51:00 AM The following Medications were prescribed to the patient: Motrin 600 mg tablets: take 1 tablet orally every 6 hours as needed for pain, stiffness or swelling. Dispense thirty (30). No refill. Substitution is permissible. -- Hayder Ziegler Dr. Zofrfauzia ODT 4 mg: take 1 orally every 8 hours as needed for nausea and vomiting. Dispense ten (10). No refill. Substitution is permissible. -- Hayder Ziegler Dr. Percocet 5 mg/325 mg: take 1 tablet orally every 6 hours as needed for pain. Dispense twenty (20). No refill. Substitution is permissible. -- Hayder Ziegler Dr.
--- NOTE | 2016-12-26 12:41 | ED MAR SUMMARY ---
..... Medication Administration Record [facility] [address] [place] [place] [address] Patient: JOSEPH CROOK Visit ID: [id number] 26y, F Weight: 97.5 kg Height/Length: 67 in BMI: 33.7 ALLERGIES: No Known Drug Allergy Start 02:34 12/23/2016 Clarisse Mcguire R.N., Stop 03:53 12/23/2016 Rell Panchal R.N. Medication Administered: IV NS (SALINE), Dose: IV Fluids over 1 hour(s), Rate: 1000 mL/hr, Dispensed: 1000 mL bag, Site: #1. Medication Ordered: IV NS : initial bolus 1000 mL (1000 mL/hr), then none - for X1 (NOW). Given 02:35 12/23/2016 Clarisse Mcguire R.N. Medication Administered: ZOFRAN [IVP] (ONDANSETRON HCL), Dose: 4 mg IVP over 2 minute(s), Site: #1. Medication Ordered: Zofran IV 4 mg (NOW). Given 02:41 12/23/2016 Clarisse Mcguire R.N. Medication Administered: TORADOL [IVP], Dose: 30 mg IVP over 2 minute(s), Site: #1. Medication Ordered: Toradol IV 30 mg (NOW). Start 02:45 12/23/2016 Clarisse Mcguire R.N., Stop 03:53 12/23/2016 Rell Panchal R.N. Medication Administered: CEFTRIAXONE [IVPB], Dose: 1 gm IVPB over 30 minute(s), Rate: 100 mL/hr, Dispensed: 50 mL bag, Site: #1 right forearm. Medication Ordered: Ceftriaxone IV 1 gm/50mL (NOW). Given 03:51 12/23/2016 Rell Panchal R.N. Medication Administered: MORPHINE [IVP], Dose: 4 mg IVP over 2 minute(s), Site: #1 right forearm. Medication Ordered: Morphine IV 4 mg (HIGH ALERT MEDICATION, NOW).
--- NOTE | 2016-12-26 12:41 | ED MAR SUMMARY ---
..... Medication Administration Record [facility] [address] [place] [address] Patient: JOSEPH CROOK Visit ID: [id number] 26y, F Weight: 97.5 kg Height/Length: 67 in BMI: 33.7 ALLERGIES: No Known Drug Allergy Start 02:34 12/23/2016 Clarisse Mcguire R.N., Stop 03:53 12/23/2016 Rell Panchal R.N. Medication Administered: IV NS (SALINE), Dose: IV Fluids over 1 hour(s), Rate: 1000 mL/hr, Dispensed: 1000 mL bag, Site: #1. Medication Ordered: IV NS : initial bolus 1000 mL (1000 mL/hr), then none - for X1 (NOW). Given 02:35 12/23/2016 Clarisse Mcguire R.N. Medication Administered: ZOFRAN [IVP] (ONDANSETRON HCL), Dose: 4 mg IVP over 2 minute(s), Site: #1. Medication Ordered: Zofran IV 4 mg (NOW). Given 02:41 12/23/2016 Clarisse Mcguire R.N. Medication Administered: TORADOL [IVP], Dose: 30 mg IVP over 2 minute(s), Site: #1. Medication Ordered: Toradol IV 30 mg (NOW). Start 02:45 12/23/2016 Clarises Mcguire R.N., Stop 03:53 12/23/2016 Rell Panchal R.N. Medication Administered: CEFTRIAXONE [IVPB], Dose: 1 gm IVPB over 30 minute(s), Rate: 100 mL/hr, Dispensed: 50 mL bag, Site: #1 right forearm. Medication Ordered: Ceftriaxone IV 1 gm/50mL (NOW). Given 03:51 12/23/2016 Rell Panchal R.N. Medication Administered: MORPHINE [IVP], Dose: 4 mg IVP over 2 minute(s), Site: #1 right forearm. Medication Ordered: Morphine IV 4 mg (HIGH ALERT MEDICATION, NOW).
--- NOTE | 2016-12-26 12:41 | ED MED RECONCILIATION SUMMARY ---
Patient: JOSEPH CROOK Medication Reconciliation Report [facility] VisitID: [id number] [address] [place] [address] 26y, F Registration Date/Time: 12/22/2016 Weight: 97.5 kg Height/Length: 67 in. BMI: 33.7 ALLERGIES: No Known Drug Allergy The patient's Home Medications are listed below: CONTINUE TAKING THE FOLLOWING MEDICATIONS: Vitamins Oral Sertraline HCl Oral The source(s) of the original Home Medication information: Not obtained. The following Medications were given to the patient in the Emergency Department: IV NS IV Fluids bolus 0, then 1000 mL/hr, administered: 12/23/2016 2:34:00 AM Ceftriaxone [IVPB] IVPB bolus 0, then 1 gm 100 mL/hr, administered: 12/23/2016 2:45:00 AM Zofran [IVP] IVP 4 mg, administered: 12/23/2016 2:35:00 AM Toradol [IVP] IVP 30 mg, administered: 12/23/2016 2:41:00 AM Morphine [IVP] IVP 4 mg, administered: 12/23/2016 3:51:00 AM The following Medications were prescribed to the patient: Motrin 600 mg tablets: take 1 tablet orally every 6 hours as needed for pain, stiffness or swelling. Dispense thirty (30). No refill. Substitution is permissible. -- Hayder Ziegler Dr. Zofrfauzia ODT 4 mg: take 1 orally every 8 hours as needed for nausea and vomiting. Dispense ten (10). No refill. Substitution is permissible. -- Hayder Ziegler Dr. Percocet 5 mg/325 mg: take 1 tablet orally every 6 hours as needed for pain. Dispense twenty (20). No refill. Substitution is permissible. -- Hayder Ziegler Dr.
== END 2016-12-23 03:49 | disposition home or self-care (01) ==
LOC: ED SRH 23:19
DX: N23 Unspecified renal colic (principal); N20.1 Calculus of ureter; N39.0 Urinary tract infection, site not specified; R31.9 Hematuria, unspecified; I10 Essential (primary) hypertension
CPT/HCPCS: 90004; 90100; 90469; 92235; 93070; 95059